=== PATIENT | male | born 1990 | race Caucasian/White ===

== ENCOUNTER 2018-12-03 22:25 | Inpatient (IN) | payer SELFPAY ==
[~2018-12-03] VITALS: Ht 175.3 cm; Wt 112.6 kg
--- NOTE | 2018-12-03 22:29 | NUR ---
PT TAKEN TO BED 6.
[2018-12-03 22:35] VITALS: BP 108/87
--- NOTE | 2018-12-03 22:36 | NUR ---
PT BIB SELF C/O HIGH BLOOD SUGAR. PT STATES HE TOOK BLOOD SUGAR AT HOME WAS 310, C/O CHEST PAIN X TODAY, 03/31 NOT RADIATING, PRESSURE PAIN. PT STATES HE SMOKED HEROIN LAST NIGHT AND SMOKE WEED EVERY DAY, RELEASED OUT OF [facility] ON 11/30/18. +RESTLESS, +ANXIOUS, +NAUSEA, SPEECH CLEAR. PT IS AAOX4. SKIN CLAMMY, DRY AND INTACT. PT IN GOWN, IN BED; BED IN LOWER LOCKED POSITION. ER MD AWARE OF PT STATUS. WILL CONTINUE TO MONITOR. PMH: AV
[2018-12-03] MEDS ORDERED: NACL 0.9% 1,000 ML IV ONE (22:40)
[2018-12-03 23:06] LABS: BARBITURATE, URINE NEG. ng/ml (NEG <=200); BENZODIAZEPINE, URINE NEG. ng/mL (NEG <=200); CANNABINOID, URINE POS. ng/mL (NEG <=50); COCAINE, URINE NEG. ng/mL (NEG <=300); OPIATE, URINE POS. ng/mL (NEG <=2000); PHENCYCLIDINE SCREEN,URINE NEG. ng/mL (NEG <=25)
[2018-12-03 23:08] LABS: ANION GAP 32.1 (8-16); CARBON DIOXIDE 11.7 mmol/L (21-32); CREATININE 1.6 mg/dL (0.7-1.3); POTASSIUM 3.8 mmol/L (3.5-5.1)
[2018-12-03] MEDS ORDERED: LORazepam 2 MG/ML VIAL IVP ONE (23:30)
[2018-12-03] MEDS ORDERED: NACL 0.9% 2,000 ML IV ONE (23:30)
--- NOTE | 2018-12-03 23:30 | NUR ---
4 IV ATTEMPTS UNSUCCESSFULL, EJ ATTEMPT TO LEFT NECK ARTERY W/ DR. BECKER AT BEDSIDE. FLUSHED WELL, UNABLE TO ADVANCE. PT IS UNABLE TO LAY STILL.
[2018-12-03 23:35] LABS: BASOPHILS % (AUTO) 0.2 % (0.0-2.0); EOSINOPHILS # (AUTO) 0.1 K/uL (0-0.4); EOSINOPHILS % (AUTO) 0.4 % (0.0-4.0); HEMATOCRIT 42.9 % (36-52); HEMOGLOBIN 14.7 g/dL (12.0-18.0); LYMPHOCYTES # (AUTO) 3.2 K/uL (2.0-11.5); LYMPHOCYTES % (AUTO) 17.5 % (20.5-51.1); MEAN CORPUSCULAR HEMOGLOBIN 29 pg (27-31); MEAN CORPUSCULAR HGB CONC 34 g/dL (33-37); MEAN CORPUSCULAR VOLUME 84.8 fL (80-94); MONOCYTES # (AUTO) 1.7 K/uL (0.8-1.0); MONOCYTES % (AUTO) 9.4 % (1.7-9.3); NEUTROPHILS # (AUTO) 13.3 K/uL (1.8-7.7); NEUTROPHILS % (AUTO) 72.5 % (42.2-75.2); PLATELET COUNT (AUTO) 240 K/uL (140-450); RED BLOOD CELL COUNT(AUTO) 5.06 MIL/uL (4.20-6.10); RED CELL DISTRIBUTION WIDTH 13.1 % (11.6-13.7); WHITE BLOOD COUNT (AUTO) 18.3 K/uL (4.8-10.8)
[2018-12-03] MEDS ORDERED: KCL 20 MEQ/WATER INJ PREMIX 100 ML IV ONE (23:55)
[2018-12-03] MEDS ORDERED: ZOLPIDEM 5 MG TAB PO PRN (23:55)
[2018-12-03] MEDS ORDERED: HYDROcodone/APAP 7.5/325 MG 1 TAB PO PRN (23:55)
[2018-12-03] MEDS ORDERED: DEXT 5% / NACL 0.45% 1,000 ML IV SCH (23:56)
[2018-12-04] VITALS (17 sets, daily range): BP systolic 119–153; BP diastolic 49–89
[2018-12-04] MEDS ORDERED: POTASSIUM CHLORIDE 40 MEQ in NACL 0.9% 1,000 ML IV ONE ×2
[2018-12-04] MEDS ORDERED: DEXTROSE 50% 50 ML SYR IVP PRN
--- NOTE | 2018-12-04 00:10 | NUR ---
LEFT EJ NOT FUNCTIONAL AT THIS TIME. DR. PHILLIPS AT BEDSIDE, AWARE OF PT WAS NOT ABLE TO GET A FUNCTION IV, STATES PT WILL GET A CENTRAL LINE. ER MEDS ON HOLD AT THIS TIME, ER MD AWARE. 24G TO RIGHT THUMB, +RESISTANCE AT THIS TIME.
[2018-12-04] MEDS ORDERED: HUM SUBQ (00:27)
[2018-12-04] MEDS ORDERED: INSU100S22 SC (00:27)
--- NOTE | 2018-12-04 00:35 | NUR ---
PT ARRIVED VIA ED RN, HOLLIS. PT IS AWAKE/ALERT. LEFT EJ AND RIGHT THUMB [address] INFUSING BOLUS NS A AT THIS TIME. PT IS ABLE TO AMBULATE AND REPOSITION HIMSELF IN BED. ST ON CARDIAC MONTIOR, ON ROOM AIR. BOWEL SOUND ACTIVE.DX DKA, NKA, FULL CODE.TEMP 99.2 RR=27, SATING 99%, AND BP 94/76. NO GOMES IN PLACE. PT IS STATING HE IS ANXIOUS AND CONTUOUSLY RESTLESS, MOVING ARMS AND LEGS AT BEDSIDE. HOB ABOVE 30 DEG, STANDARD PRECAUTIONS, Addendum: 12/04/18 at 0746 by Uzma Peterson RN PT HAS SLIPPERS, PANTS, ACCUCHECK KIT FROM HOME, CELL PHONE SALVAGE DETERMINER AND CELLPHONE IN BAG AT BEDSIDE.
--- NOTE | 2018-12-04 00:35 | NUR ---
Admited to ICU-2 via gurney by ALISTAIR Randolph and Alexandr, EMT. VSS at this time. AAOx4. Belongings list completed. Report to ALISTAIR Dejesus.
[2018-12-04 00:38] LABS: PROTHROMBIN TIME 10.3 secs (10.8-13.4)
--- NOTE | 2018-12-04 00:39 | NUR ---
CALL TO ICU SPOKE W/ CHARGE NURSE, DR. PHILLIPS WILL BE PLACING CENTRAL LINE ON PT ONCE IN ICU.
[2018-12-04] MEDS ORDERED: LORazepam 2 MG/ML VIAL IVP SCH ×3 (00:45→06:30)
[2018-12-04] MEDS ORDERED: INSULIN REGULAR, HUMAN 100 UNIT/ML VIAL SUBQ SCH (00:45)
[2018-12-04] MEDS ORDERED: INSULIN REGULAR, HUMAN 100 UNIT/ML VIAL IV SCH (00:45)
[2018-12-04] MEDS: BLOOD GLUCOSE MONITORING 1 DEV DEV FS SCH ×26 (00:46→23:16)
[2018-12-04 00:51] LABS: FREE T4 (FREE THYROXINE) 1.53 ng/dL (0.76-1.46); MAGNESIUM 1.9 mg/dL (1.8-2.4); PHOSPHORUS 5.2 mg/dL (2.5-4.9); THYROID STIMULATING HORMONE 0.94 uIU/mL (0.34-3.74)
--- NOTE | 2018-12-04 01:00 | NUR ---
DR. PHILLIPS AT BEDSIDE, PT EDUCATED ON PROCEDURE AND CONSENT FROM SIGNED BY PATIENT.
[2018-12-04] MEDS: ONDANSETRON 4 MG/2 ML VIAL IVP PRN ×2 (01:14→08:30)
[2018-12-04] MEDS ORDERED: HYDROmorphone PFS 2 MG/ML SYR ONE (01:21)
--- NOTE | 2018-12-04 02:30 | NUR ---
DR. BECKER FROM ED ARRIVED TO PLACE 18 GAUGE PIV INTO LEFT AC. INFUSING NS AT BOLUS AT THIS TIME.
[2018-12-04] MEDS ORDERED: LORazepam 2 MG/ML VIAL ONE (02:43)
[2018-12-04] MEDS ORDERED: HYDROmorphone 1 MG/ML AMP IVP SCH (02:45)
--- NOTE | 2018-12-04 03:25 | NUR ---
CENTRAL LINE IN PLACE BY DR. PHILLIPS AND ASSIST FROM ULTRASOUND. DYLAN FROM RADIOLOGY AT BEDSIDE TO OBTAIN CHEST XRAY FOR CENTRAL LINE PLACEMENT.
[2018-12-04] MEDS: INSULIN REGULAR, HUMAN 100 UNIT in NACL 0.9% 100 ML IV SCH ×6 (03:30→23:18)
[2018-12-04] MEDS ORDERED: ELA25 PO (04:26)
[2018-12-04 04:29] LABS: ANION GAP 32.5 (8-16); CREATININE 1.5 mg/dL (0.7-1.3); POTASSIUM 3.5 mmol/L (3.5-5.1)
[2018-12-04 04:32] LABS: MAGNESIUM 1.8 mg/dL (1.8-2.4); PHOSPHORUS 4.8 mg/dL (2.5-4.9)
[2018-12-04 04:33] LABS: CHOL/HDL RATIO 4.5 (1-4.5)
[2018-12-04] MEDS ORDERED: VANCOMYCIN PER PHARMACY MC PRN (04:35)
[2018-12-04 04:44] LABS: APPEARANCE,URINE CLEAR (CLEAR); BILIRUBIN,URINE 1+ (NEGATIVE); BLOOD, URINE TRACE-I (NEGATIVE); COLOR,URINE YELLOW (YELLOW); LEUKOCYTE ESTERASE ,URINE NEGATIVE (NEGATIVE); NITRITE, URINE NEGATIVE (NEGATIVE); PH,URINE 5.5 (5.0-9.0); UGLUCOSE 2+ (NEGATIVE)
[2018-12-04 05:07] LABS: RBC,URINE 0-5 /HPF (0-5); WBC,URINE 0-5 /HPF (0-5)
[2018-12-04] MEDS ORDERED: VANCOMYCIN 1,500 MG in NACL 0.9% 500 ML IV SCH (05:10)
[2018-12-04] MEDS ORDERED: SODIUM CHLORIDE 0.9% IV ONE (05:56)
[2018-12-04] MEDS ORDERED: POTASSIUM CHLORIDE IV ONE (05:56)
[2018-12-04] MEDS ORDERED: VANCOMYCIN 1,000 MG VIAL ONE (05:59)
--- NOTE | 2018-12-04 06:31 | NUR ---
DR. HANDY AT BEDSIDE, UPDATED ON PT CONDITION. CURRENT MT=384.
[2018-12-04] MEDS ORDERED: NACL 0.9% 1,000 ML IV ONE (06:50)
--- NOTE | 2018-12-04 07:20 | NUR ---
RECEIVED BEDSIDE REPORT FROM SCHOOL COUNSELOR RN, SHREYAS, FOR CONTINUITY OF CARE. PATIENT IS AAOX2, LETHARGIC, ABLE TO FOLLOW SIMPLE COMMANDS. PATIENT SKIN IS WARM AND DRY, INTACT. HE HAS CENTRAL LINE TO RIJ, ASYMPTOMATIC, PATENT. ST ON MONITOR, O2 SAT IS 94, BREATHING EVEN AND UNLABORED, DENIES ANY PAIN. HOB IS SEMI FOWLERS, NO SIGNS OF DISTRESS AT THIS TIME. WILL CONTINUE TO MONITOR
--- NOTE | 2018-12-04 07:30 | NUR ---
REPORT GIVEN TO MORNING SHIFT RNXIN.
--- NOTE | 2018-12-04 07:57 | NUR ---
ENDORSED TO ALISTAIR LAUREN, THAT PT AMITRYPTALINE MED WAS TURNED INTO PHARMACY.
[2018-12-04] MEDS ORDERED: CALCIUM ACETATE 667 MG TAB PO SCH ×2 (08:00)
--- NOTE | 2018-12-04 08:04 | NUR ---
DR. MOLINA AND RESIDENTS AT BEDSIDE
[2018-12-04] MEDS ORDERED: diphenhydrAMINE 50 MG/ML VIAL IVP SCH (08:15)
[2018-12-04] MEDS ORDERED: MORPHINE SULFATE 4 MG/ML SYR IVP SCH (08:15)
[2018-12-04] MEDS: POTASSIUM CHLORIDE 40 MEQ in NACL 0.9% 1,000 ML IV SCH ×4 (08:29→20:30)
[2018-12-04 08:30] LABS: ANION GAP 8.2 (8-16); CARBON DIOXIDE 33.8 mmol/L (21-32); CREATININE 1.1 mg/dL (0.7-1.3)
--- NOTE | 2018-12-04 08:36 | NUR ---
PATIENT HAS BEEN SCREENED AND CATEGORIZED HIGH NUTRITION RISK. PATIENT WILL BE SEEN WITHIN 1-2 DAYS OF ADMISSION. 12/04/18-12/05/[address]
--- NOTE | 2018-12-04 09:08 | NUR ---
INSERTED GOMES CATHETER, GOOD URINE OUTPUT NOTED, PATIENT TOLERATED WELL.
[2018-12-04] MEDS ORDERED: DEXMEDETOMIDINE HCL 200 MCG in NACL 0.9% 48 ML IV PRN ×2 (09:10→11:55)
--- NOTE | 2018-12-04 09:10 | NUR ---
reported vbg to dr saul
--- NOTE | 2018-12-04 09:13 | NUR ---
DR. FISHMAN IN TO SEE PATIENT, UPDATED ON PATIENT'S CONDITION.
[2018-12-04 09:32] LABS: MAGNESIUM 2.6 mg/dL (1.8-2.4)
[2018-12-04 09:42] LABS: BASOPHILS % (AUTO) 0.3 % (0.0-2.0); EOSINOPHILS # (AUTO) 0.6 K/uL (0-0.4); EOSINOPHILS % (AUTO) 5.4 % (0.0-4.0); HEMATOCRIT 52.4 % (36-52); HEMOGLOBIN 16.7 g/dL (12.0-18.0); LYMPHOCYTES # (AUTO) 1.1 K/uL (2.0-11.5); LYMPHOCYTES % (AUTO) 10.3 % (20.5-51.1); MEAN CORPUSCULAR HEMOGLOBIN 28 pg (27-31); MEAN CORPUSCULAR HGB CONC 32 g/dL (33-37); MEAN CORPUSCULAR VOLUME 86.9 fL (80-94); MONOCYTES # (AUTO) 1.3 K/uL (0.8-1.0); MONOCYTES % (AUTO) 11.8 % (1.7-9.3); NEUTROPHILS # (AUTO) 7.7 K/uL (1.8-7.7); NEUTROPHILS % (AUTO) 72.2 % (42.2-75.2); PLATELET COUNT (AUTO) 104 K/uL (140-450); RED BLOOD CELL COUNT(AUTO) 6.03 MIL/uL (4.20-6.10); RED CELL DISTRIBUTION WIDTH 18.4 % (11.6-13.7); WHITE BLOOD COUNT (AUTO) 10.7 K/uL (4.8-10.8)
[2018-12-04] MEDS: DOCUSATE SODIUM 100 MG GELCAP PO SCH ×2 (09:48→20:36)
[2018-12-04] MEDS: PANTOPRAZOLE 40 MG INJ VIAL IVP SCH (09:48)
[2018-12-04] MEDS: cefTRIAXone 1,000 MG in NACL 0.9% 50 ML IV SCH (09:49)
[2018-12-04 09:59] LABS: PHOSPHORUS 3.2 mg/dL (2.5-4.9)
--- NOTE | 2018-12-04 10:07 | NUR ---
STARTED PATIENT ON SOFT WRIST RESTRAINTS, DUE TO PATIENT PULLING ON CENTRAL LINE AND TAKING OFF LEADS. DR. ROZINA PAYNE.
--- NOTE | 2018-12-04 11:49 | NUR ---
POWER PLANT ENGINEER IS HERE TO ECHOCARDIOGRAM, HOWEVER PATIENT IS VERY RESTLESS. DR. HANDY IS AWARE, STATES IF ECHO CANNOT BE DONE DUE TO PATIENT'S RESTLESSNESS, THEN IT CAN BE DONE TOMORROW.
--- NOTE | 2018-12-04 12:41 | NUR ---
VBG REPORTED TO DR BETANCOURT
[2018-12-04] MEDS: DEXMEDETOMIDINE HCL 200 MCG in NACL 0.9% 48 ML IV PRN (13:16)
[2018-12-04] MEDS: VANCOMYCIN 1GM/DEXT 5% PREMIX 200 ML IV SCH ×2 (13:28→22:33)
--- NOTE | 2018-12-04 13:45 | NUR ---
PATIENT IS AT RASS -1, WILL CONTINUE TO MONITOR PATIENT.
[2018-12-04] MEDS ORDERED: SODIUM PHOS / POTASSIUM PHOS 1 PKT PDR PO SCH (14:00)
--- NOTE | 2018-12-04 14:10 | NUR ---
DR. BLEVINS AT BEDSIDE, UPDATED ON PATIENT'S CONDITION
[2018-12-04 14:24] LABS: ANION GAP 29.1 (8-16); CARBON DIOXIDE 10.6 mmol/L (21-32); CREATININE 1.2 mg/dL (0.7-1.3); POTASSIUM 3.7 mmol/L (3.5-5.1)
[2018-12-04 14:47] LABS: MAGNESIUM 1.7 mg/dL (1.8-2.4); PHOSPHORUS 1.9 mg/dL (2.5-4.9)
[2018-12-04] MEDS ORDERED: MAG SULF 2000 MG/WATER PREMIX 100 ML IV SCH (16:00)
--- NOTE | 2018-12-04 16:03 | NUR ---
REMOVED SOFT WRIST RESTRAINTS SINCE PATIENT IS MORE CALM, NOT PULLING ON TUBING OR RESTLESS.
[2018-12-04] MEDS ORDERED: VERAPAMIL 5 MG/2 ML VIAL IVP SCH (16:30)
[2018-12-04] MEDS: ACETAMINOPHEN 325 MG TAB PO PRN (16:43)
--- NOTE | 2018-12-04 17:49 | NUR ---
DR. HARMON IN TO SEE AND EXAMINE PATIENT, UPDATED ON PATIENT'S CONDITION
[2018-12-04 17:56] LABS: ANION GAP 17.7 (8-16); CARBON DIOXIDE 16.9 mmol/L (21-32); CREATININE 1.2 mg/dL (0.7-1.3); POTASSIUM 3.6 mmol/L (3.5-5.1)
[2018-12-04 18:00] LABS: MAGNESIUM 2.3 mg/dL (1.8-2.4); PHOSPHORUS 1.5 mg/dL (2.5-4.9)
[2018-12-04] MEDS ORDERED: POTASSIUM PHOSPHATE 15 MM in NACL 0.9% 250 ML IV SCH (19:00)
--- NOTE | 2018-12-04 19:15 | NUR ---
RECEIVED BEDSIDE REPORT FROM MORNING RNXIN. AFEBRILE TEMP 98.2, 139/63. SATING 98%, RR=27 , HR =108. ST ON CORPORATE LEGAL INTERN. ON ROOM AIR. LUNG SOUND CLEAR. BOWEL SOUND ACTIVE X4. RIJ CENTRAL LINE IN PLACE, INFUSING D51/2NS AT 200CC/HR, PRECEDEX AT 2.8ML/HR, INSULIN DRIP AT 5.5UNIT/HR. GOMES IN PLACE URINE IS DARK IVAN/ORANGE IN COLOR. PT IS EASY TO AROUSE, MOANS AND AT TIMES INCOHERENT SPEECH, OPENS EYES SPONTANEOUSLY. STANDARD PRECAUTIONS, FALL RISK PRECUATIONS MAINTAINED.
--- NOTE | 2018-12-04 19:20 | NUR ---
ENDORSED CONTINUITY OF CARE TO SOLAR SALES ESTIMATOR RNSHREYAS, NO SIGNS OF DISTRESS NOTED.
--- NOTE | 2018-12-04 20:30 | NUR ---
CLARIFIED WITH DR HARMON REGARDING POTASSIUM CHLORIDE 40MEQ ORDER; SAID NOT TO GIVE GIVE IT; TO GIVE THE POTASSIUM PHOSPHATE .SHREYAS SAINZ, AWARE
[2018-12-04] MEDS: AMITRIPTYLINE 75 MG PO SCH (20:36)
[2018-12-04 20:46] LABS: CARBON DIOXIDE 20.3 mmol/L (21-32); CREATININE 1.2 mg/dL (0.7-1.3); POTASSIUM 3.3 mmol/L (3.5-5.1)
[2018-12-04 20:50] LABS: MAGNESIUM 2.3 mg/dL (1.8-2.4); PHOSPHORUS 1.6 mg/dL (2.5-4.9)
[2018-12-04] MEDS ORDERED: AMITRIPTYLINE 25 MG TAB PO SCH (21:00)
--- NOTE | 2018-12-04 21:05 | NUR ---
PHONE CALL TO DR HARMON; MADE AWARE BS 117; 116 EARLIER. SAID TO DECREASE INSULIN DRIP TO 2.5 UNITS AT THIS TIME; MD AWARE ANION GAP 16.0
[2018-12-05] VITALS (50 sets, daily range): BP systolic 110–170; BP diastolic 60–93
[2018-12-05] MEDS: BLOOD GLUCOSE MONITORING 1 DEV DEV FS SCH ×25 (00:16→22:56)
--- NOTE | 2018-12-05 00:21 | NUR ---
PT HR 101-105, RR=27-33, TEMP 98.7. PT AROUSES TO VOICE/TOUCH. REMAINS ON SEDATION 2.8ML/HR PRECEDEX AND INSULIN DRIP AT 2.5UNITS/HR AND D51/2NS 200CC/HR. BG CHECK WAS 137.
[2018-12-05 00:26] LABS: ANION GAP 17.1 (8-16); CARBON DIOXIDE 20.3 mmol/L (21-32); CREATININE 1.1 mg/dL (0.7-1.3); POTASSIUM 3.4 mmol/L (3.5-5.1)
[2018-12-05 00:30] LABS: PHOSPHORUS 2.1 mg/dL (2.5-4.9)
[2018-12-05] MEDS: POTASSIUM CHLORIDE 40 MEQ in NACL 0.9% 1,000 ML IV SCH ×2 (00:34→04:39)
--- NOTE | 2018-12-05 00:38 | NUR ---
SPOKE WITH DR. HARMON, UPDATED ON RECENT BG AND LABS. NEW ORDER FOR INSULIN AT 3 UNITS/HR AND INCREASE FLUIDS TO 250ML/HR. WILL CARRY OUT.
--- NOTE | 2018-12-05 00:47 | NUR ---
RT ARI AT BEDSIDE TO BLOOD SAMPLE. DRAWN FROM CENTRAL LINE
--- NOTE | 2018-12-05 04:23 | NUR ---
PT SLEEPING, BUT EASY TO AROUSE. REQUESTING FOOD AT THIS TIME, EXPLAINED TO PT THAT HE CANNOT EAT RIGHT NOW AND DISCUSSED DX DKA. PT IS CALM/COOPERATIVE.
[2018-12-05] MEDS: DEXMEDETOMIDINE HCL 200 MCG in NACL 0.9% 48 ML IV PRN (04:32)
[2018-12-05] MEDS: VANCOMYCIN 1GM/DEXT 5% PREMIX 200 ML IV SCH (06:25)
--- NOTE | 2018-12-05 06:33 | NUR ---
DR HANDY AT BEDSIDE TO SEE PATIENT. PT IS AWAKE AT THIS TIME.
[2018-12-05 07:02] LABS: BASOPHILS % (AUTO) 0.3 % (0.0-2.0); EOSINOPHILS # (AUTO) 0.3 K/uL (0-0.4); HEMATOCRIT 37.1 % (36-52); HEMOGLOBIN 12.9 g/dL (12.0-18.0); LYMPHOCYTES % (AUTO) 28.4 % (20.5-51.1); MEAN CORPUSCULAR HEMOGLOBIN 30 pg (27-31); MEAN CORPUSCULAR HGB CONC 35 g/dL (33-37); MEAN CORPUSCULAR VOLUME 84.8 fL (80-94); MONOCYTES % (AUTO) 9.8 % (1.7-9.3); NEUTROPHILS # (AUTO) 6.2 K/uL (1.8-7.7); NEUTROPHILS % (AUTO) 58.5 % (42.2-75.2); PLATELET COUNT (AUTO) 182 K/uL (140-450); RED BLOOD CELL COUNT(AUTO) 4.37 MIL/uL (4.20-6.10); RED CELL DISTRIBUTION WIDTH 13.3 % (11.6-13.7); WHITE BLOOD COUNT (AUTO) 10.6 K/uL (4.8-10.8)
[2018-12-05 07:16] LABS: ANION GAP 15.4 (8-16); CARBON DIOXIDE 20.8 mmol/L (21-32); POTASSIUM 3.2 mmol/L (3.5-5.1)
--- NOTE | 2018-12-05 07:23 | NUR ---
BEDSIDE REPORT GIVEN TO MORNING SHIFT RNNORI.
--- NOTE | 2018-12-05 07:23 | NUR ---
RECEIVED BEDSIDE REPORT FROM MARY JANE SAINZ. PATIENT IN STABLE CONDITION. WILL CONTINUE TO MONITOR. Addendum: 12/05/18 at 1141 by Mcihelle Pierre RN PATIENT IS SEDATED WITH PRECEDEX DRIP. ON ROOM AIR. AWAKENS TO NAME. SKIN WARM TO TOUCH WNL, TOENAILS WNL, NO EDEMA, WITH HAIR GROWTH AND +2 BILATERAL PEDAL PULSES. RIGHT IJ TRIPLE LUMEN CENTRAL LINE PATENT AND INTACT. LEFT EJ HEPLOCK. FC IN PLACE TO YELLOW URINE IN MODERATE AMOUNT. BILATERAL BREATH SOUNDS CLEAR. ABLE TO FOLLOW SIMPLE COMMANDS. SAFETY MEASURES IN PLACE. WILL CONTINUE TO MONITOR
[2018-12-05 07:34] LABS: PHOSPHORUS 1.2 mg/dL (2.5-4.9)
[2018-12-05] MEDS: cefTRIAXone 1,000 MG in NACL 0.9% 50 ML IV SCH (08:21)
[2018-12-05] MEDS: PANTOPRAZOLE 40 MG INJ VIAL IVP SCH (08:22)
--- NOTE | 2018-12-05 08:27 | NUR ---
VBG RESULTS GIVEN TO DR. HANDY.
--- NOTE | 2018-12-05 08:35 | NUR ---
DR MOLINA AND GROUP ROUNDING. UPDATED OF PATIENT'S CONDITION. WILL FOLLOW UP WITH ORDERS
--- NOTE | 2018-12-05 08:45 | NUR ---
DR HANDY MADE AWARE OF PATIENT'S K 3.2 LEVEL. WILL FOLLOW UP WITH ORDERS
[2018-12-05] MEDS: DOCUSATE SODIUM 100 MG GELCAP PO SCH ×2 (09:00→21:00)
[2018-12-05 09:08] LABS: MAGNESIUM 2.7 mg/dL (1.8-2.4); PHOSPHORUS 2.9 mg/dL (2.5-4.9)
[2018-12-05 09:10] LABS: ANION GAP 8.9 (8-16); CARBON DIOXIDE 31.7 mmol/L (21-32); CREATININE 1.2 mg/dL (0.7-1.3); POTASSIUM 3.6 mmol/L (3.5-5.1)
--- NOTE | 2018-12-05 09:30 | NUR ---
PATIENT REFUSED PO MEDS AT THIS TIME.
[2018-12-05] MEDS: KCL 20 MEQ/WATER INJ PREMIX 200 ML IV SCH ×2 (10:47→13:53)
--- NOTE | 2018-12-05 14:08 | NUR ---
12/05/18 RD INITIAL ASSESSMENT COMPLETED PLEASE REFER TO NUTRITION ASSESSMENT UNDER CARE ACTIVITY FOR ESTIMATED NUTRITIONAL NEEDS. 1. CONTINUE ICE CHIPS MEDICALLY NECESSARY 2. WHEN PATIENT IS MEDICALLY STABLE CONSIDER ADVANCING DIET TO CCHO 60 GM TOLERATED 3. PATIENT DECLINED NUTRITION EDUCATION FOR DIABETES 4. RD TO FOLLOW-UP 2-3 DAYS, HIGH RISK JUDI BLANCO RD
[2018-12-05] MEDS: VANCOMYCIN 1,500 MG in DEXTROSE 5% 500 ML IV SCH ×2 (14:09→22:45)
[2018-12-05 15:48] LABS: CARBON DIOXIDE 21.1 mmol/L (21-32); CREATININE 0.9 mg/dL (0.7-1.3); POTASSIUM 3.1 mmol/L (3.5-5.1)
[2018-12-05 15:49] LABS: MAGNESIUM 2.6 mg/dL (1.8-2.4)
[2018-12-05] MEDS: ACETAMINOPHEN 325 MG TAB PO PRN (16:32)
[2018-12-05] MEDS: POTASSIUM CHL 20 MEQ/NACL 0.9% 1,000 ML IV SCH ×2 (16:34→23:48)
--- NOTE | 2018-12-05 17:46 | NUR ---
RECEIVED A CALL FROM LAB, PATIENT IS POSITIVE FOR MRSA. DR MCINTOSH MADE AWARE. WILL FOLLOW UP WITH ORDERS.
[2018-12-05] MEDS: CHLORHEXADINE GLUC 2% CLOTH TP SCH (18:30)
[2018-12-05] MEDS ORDERED: POTASSIUM CHLORIDE 40 MEQ, LIDOCAINE MPF 1% - 5 mL VIAL 25 MG in NACL 0.9% 250 ML IV SCH (19:00)
[2018-12-05] MEDS: MUPIROCIN CA NASAL 2% 1GM TUBE NS SCH (19:07)
--- NOTE | 2018-12-05 19:20 | NUR ---
REPORT GIVEN TO NOC RN FOR CONTINUITY OF CARE. PATIENT IN STABLE CONDITION.
--- NOTE | 2018-12-05 19:20 | NUR ---
RECEIVED BEDSIDE REPORT FROM MORNING SHIFT RNNORI. BP 153/84, RR=21, PX=479, SATING 99%, AFEBRILE TEMP 98.9. ON ROOM AIR, BILATERAL LUNG SOUNDS. BOWEL SOUND ACTIVE. PT COMPLAINS THAT HE IS HUNGRY AND WOULD LIKE TO EAT, PT EDUCATED AND AWARE OF NPO AND DKA STATUS. GOMES IN PLACE URINE IS YELLOW TO LIGHT IVAN/CLOUDY. NO BM AT THIS TIME. RIGHT IJ INFSING 20MEQ KCL/NS AT 150CC/HR AND 3 UNITS /HR INUSLIN DRIP TO RIGHT IJ.PT IS AWAKE, ABLE TO RESPOND TO COMMANDS. STATED THAT HE IS HUNGRY AND WOULD LIKE TO EAT. PT EDUCATED AND AWARE OF NPO STATUS DUE TO DKA. SKIN IS INTACT. FALL RISK AND CONTACT PRECAUTIONS MAINTAINED.
--- NOTE | 2018-12-05 19:32 | NUR ---
DR. BLEVINS AT [facility] TO SEE PATIENT, UPDATED ON CURRENT CONDITION. NO NEW ORDERS AT THIS TIME.
[2018-12-05 20:32] LABS: ANION GAP 13.8 (8-16); CREATININE 0.9 mg/dL (0.7-1.3)
[2018-12-05 20:36] LABS: MAGNESIUM 1.7 mg/dL (1.8-2.4); PHOSPHORUS 1.1 mg/dL (2.5-4.9)
[2018-12-05 20:42] LABS: POTASSIUM 2.8 mmol/L (3.5-5.1)
[2018-12-05] MEDS: AMITRIPTYLINE 75 MG PO SCH (21:00)
--- NOTE | 2018-12-05 21:03 | NUR ---
ENDROSED TO DR. HARMON, OF POTASSIUM CRITICAL LAB VALUE 2.8, LAST BG READING OF 220 AND 244, INFUSING 40MEQ POTASSIUM, AND 20MEQ KCL/NS AT 150CC/HR. STATED TO FOLLOW PROTOCOL, INCREASED INSULIN TO 5.5UNIT/HR.
--- NOTE | 2018-12-05 22:17 | NUR ---
PT STARTING TO DESAT IN 79-84%, RESPIRATIONS 27-30. RECOMMENDED TO PATIENT TO WEAR OXYGEN AT THIS TIME. PT REFUSED TO WEAR OXYGEN STATING THAT HE DOES NOT WANT TO WEAR OXYGEN SINCE HE CANNOT EAT. ENCOURAGE PATIENT TO WEAR OXYGEN, RE-EDUCATED PATIENT THAT HE CANNOT EAT DUE TO HIS DKA STATUS AND THAT WE ARE CONSISTENTLY MONITORING BLOOD SUGARS.
--- NOTE | 2018-12-05 22:31 | NUR ---
PT REFUSING BLOOD SUGAR CHECK STATING "ITS NOT GOING TO MAKE A DIFFERENCE, SINCE I CANT EAT" AND THAT IT IS NOT NECESSARY TO CHECK IT EVERY HOUR. PT REFUSING ORAL COLACE AT THIS TIME. Addendum: 12/05/18 at 2240 by Uzma Peterson RN DR HARMON MADE AWARE.
[2018-12-06] VITALS: BP 144/82
[2018-12-06] MEDS: BLOOD GLUCOSE MONITORING 1 DEV DEV FS SCH ×10 (00:44→21:22)
[2018-12-06 00:48] LABS: CREATININE 0.9 mg/dL (0.7-1.3)
[2018-12-06 00:53] LABS: MAGNESIUM 1.6 mg/dL (1.8-2.4)
[2018-12-06 02:00] VITALS: BP 149/78
--- NOTE | 2018-12-06 02:04 | NUR ---
CALLED DR. HARMON UPDATED ON RECENT LAB RESULTS ANION GAP 12 AND 13.8 AND AG=481. PT REQUESTING TO EAT CEREAL/FOOD AT THIS TIME. EDUCATED PT ON DX OF DKA, PT AWARE DR. HARMON HAS BEEN CONTACTED.
[2018-12-06] MEDS: INSULIN REGULAR, HUMAN 100 UNIT in NACL 0.9% 100 ML IV SCH ×2 (02:45)
--- NOTE | 2018-12-06 02:46 | NUR ---
CALLED DR. HARMON, UPDATED ON PT CONDITION AND PT REQUESTS TO EAT. TO REVIEW LABS STATED NO CHANGE IN ORDERS AT THIS TIME. PT RECEIVING INSULIN DRIP AT 5.5 UNITS/HR, 20MEQ KCL/1 LITER NS INFUSING AT 150/HR. WILL UPDATE ORDER FOR MAG AND PHOS.
[2018-12-06] MEDS ORDERED: INSULIN LANTUS 100 UNITS/ML 10 ML VIAL SUBQ SCH ×4 (02:50→09:00)
[2018-12-06] MEDS ORDERED: INSULIN LISPRO SLIDING SCALE 100 UNITS/ML VIAL SUBQ PRN (02:50)
[2018-12-06] MEDS ORDERED: DEXTROSE 50% 50 ML SYR IVP PRN (02:50)
--- NOTE | 2018-12-06 03:01 | NUR ---
DR. HARMON UPDATED ORDERS, PT AWAKE AT BEDSIDE EATING SANDWICH AND MILK. 100ML OF INSULIN WASTED AFTER D/C ORDER AND WASTED 30ML PRECEDEX AT THIS TIME. CHARGE NURSE EFREN AT BEDSIDE TO WITNESS.
[2018-12-06] MEDS ORDERED: POTASSIUM PHOSPHATE 15 MM in NACL 0.9% 250 ML IV SCH ×2 (03:15→11:30)
[2018-12-06] MEDS ORDERED: MAG SULF 2000 MG/WATER PREMIX 50 ML IV SCH (03:15)
--- NOTE | 2018-12-06 03:30 | NUR ---
RECEIVED CALL FROM PHARMACY SUE([phone]) , STATED INSULIN DOSES SEEM TOO CLOSE (15 UNITS TO GIVE NOW, AND 0900 50 UNITS TO GIVE LATER) PHARMACY WANTED CONFIRMATION FROM DR. HARMON THAT THIS DOSAGES AND TIMES IS CORRECT. CALLED DR. HARMON UPDATED ON PHARMACY CONCER, DR. HARMON TO RE-EVALUATE AND UPDATE ORDER AT THIS TIME, STATED PT NORMALLY RECEIVES HIGHER DOSE (95 UNITS LANTUS INSULIN) WHILE AT HOME. TO F/U WITH ORDERS.
[2018-12-06 04:00] VITALS: BP 138/79
--- NOTE | 2018-12-06 05:06 | NUR ---
PT STATE NEED TO HAVE BOWEL MOVEMENT AND VOIDING EPISODE, REFUSED COMMODE AND BEDPAN, PT EDUCATED VIA CHARGE NURSE EFREN THAT HE HAS A GOMES AND THAT HE HAS BEEN URINATING INTO CATHETER BAG. PT WAS MILDLY AGITATED AND EXPRESSED HE IS FAMILIAR WITH HOW FOLEYS WORK HE HAS HAD ONE BEFORE, BUT STILL FEELS THAT HE IS UNABLE TO VOID IN BED. CHARGE NURSE EFREN PROVIDED STANDBY ASSIST AT BEDSIDE, PT WAS THEN TRANSFERRED TO BED 8 AT THIS TIME DUE TO CONTACT ISOLATION STATUS AND TOILET IN ROOM (0445), PT COMPLIED. UPON USING BATHROOM TOILET, PT EXPRESSED CATHETER IS COMING OUT. 10CC WAS REMOVED VIA BALLOON AND GOMES CATHETER WAS REMOVED. PT HAD ONE BOWEL MOVEMENT. PT IS LAYING IN BED, QUIET, DRINKING WATER AT THIS TIME. CURRENT BG CHECK IS 380. MAGNESIUM INFUSNIG AT 25ML/HR, AND POTASSIUM CHLORIDE AT 150CC/HR. PT DENIES PAIN AND CONSTIPATION AT THIS TIME(0505).
[2018-12-06] MEDS ORDERED: INSULIN REGULAR, HUMAN 100 UNIT/ML VIAL SUBQ SCH ×2 (05:30→06:00)
[2018-12-06] MEDS ORDERED: SODIUM PHOS / POTASSIUM PHOS 1 PKT PDR PO SCH (05:30)
--- NOTE | 2018-12-06 05:32 | NUR ---
DR. HARMON CALLED BACK SPOKE TO CHARGE NURSE EFREN STATED HE WOULD UPDATE ORDERS AT THIS TIME.
--- NOTE | 2018-12-06 05:55 | NUR ---
DR. HANDY AT BEDSIDE TO SEE PATIENT, PT IS AWAKE AT THIS TIME
[2018-12-06] MEDS ORDERED: SODIUM PHOS / POTASSIUM PHOS 1 PKT PDR ONE (06:05)
[2018-12-06] MEDS: VANCOMYCIN 1,500 MG in DEXTROSE 5% 500 ML IV SCH (06:08)
[2018-12-06] MEDS: POTASSIUM CHL 20 MEQ/NACL 0.9% 1,000 ML IV SCH (06:15)
--- NOTE | 2018-12-06 06:26 | NUR ---
PT REFUSES TO WEAR O2 SAT AND BP CUFF, AGREES TO CONTINUE TO WEAR CLAIMS ADJUSTER SUPERVISOR. 15 UNITS REGULAR INSULIN WAS GIVEN. TOTAL URINE OUTPUT WAS 1600 Q SHIFT, WITH 2 EPISODES VOIDING THAT WAS UNMEASURED. PT IS ALERT AND ABLE TO AMBULATE WITHOUT ASSISTANCE.
--- NOTE | 2018-12-06 07:30 | NUR ---
RECEIVED REPORT FROM HAUL TRUCK DRIVER RN. PT RESTING IN BED. A/O X4. MAKES NEEDS KNOWN. BREATHING NORMALLY. NO SOB OR ACUTE RESPIRATORY DISTRESS NOTED. AFEBRILE. LUNGS CLEAR. RIJ TRIPLE LUMEN. INTACT LINES. FLUSHED. NS WITH KCL RUNNING AT 150 ML/HR. LEFT EJ IN PLACE. PERIPHERAL LINE NOTED ON RIGHT HAND. PT REFUSED TO CHECKED OTHER PERIPHERAL LINES. DENIES ANY NAUSEA OR VOMITING. ABDOMEN SOFT, ROUND AND NON-TENDER. ACTIVE BOWEL SOUND. SKIN INTACT. REFUSED TO PERFORM HEAD TO TOE ASSESSMENT COMPLETELY. REFUSED TO CHECK SPO2 AND TO BE ON MONITOR. NO C/O PAIN AT THIS TIME. BED IN LOW POSITION LOCKED. WILL CONTINUE TO MONITOR.
[2018-12-06 08:00] VITALS: BP 132/68
--- NOTE | 2018-12-06 08:00 | NUR ---
EVALUATED BY DR. MOLINA AND RESIDENT GROUP.
[2018-12-06 08:07] LABS: ANION GAP 20.2 (8-16); CARBON DIOXIDE 19.2 mmol/L (21-32); CREATININE 0.9 mg/dL (0.7-1.3); POTASSIUM 3.4 mmol/L (3.5-5.1)
[2018-12-06] MEDS: cefTRIAXone 1,000 MG in NACL 0.9% 50 ML IV SCH (08:29)
[2018-12-06] MEDS: PANTOPRAZOLE 40 MG INJ VIAL IVP SCH (08:29)
[2018-12-06] MEDS: DOCUSATE SODIUM 100 MG GELCAP PO SCH (08:29)
[2018-12-06 08:31] LABS: PHOSPHORUS 1.4 mg/dL (2.5-4.9)
[2018-12-06] MEDS: INSULIN LISPRO SLIDING SCALE 100 UNITS/ML VIAL SUBQ PRN ×4 (08:32→21:23)
[2018-12-06 08:39] LABS: BASOPHILS % (AUTO) 0.2 % (0.0-2.0); EOSINOPHILS # (AUTO) 0.5 K/uL (0-0.4); HEMATOCRIT 38.5 % (36-52); HEMOGLOBIN 13.2 g/dL (12.0-18.0); LYMPHOCYTES # (AUTO) 5.3 K/uL (2.0-11.5); LYMPHOCYTES % (AUTO) 29.3 % (20.5-51.1); MEAN CORPUSCULAR HEMOGLOBIN 29 pg (27-31); MEAN CORPUSCULAR HGB CONC 34 g/dL (33-37); MEAN CORPUSCULAR VOLUME 85.2 fL (80-94); MONOCYTES # (AUTO) 1.8 K/uL (0.8-1.0); MONOCYTES % (AUTO) 9.6 % (1.7-9.3); NEUTROPHILS # (AUTO) 10.6 K/uL (1.8-7.7); NEUTROPHILS % (AUTO) 57.9 % (42.2-75.2); PLATELET COUNT (AUTO) 198 K/uL (140-450); RED BLOOD CELL COUNT(AUTO) 4.52 MIL/uL (4.20-6.10); WHITE BLOOD COUNT (AUTO) 18.2 K/uL (4.8-10.8)
--- NOTE | 2018-12-06 08:41 | NUR ---
ADMINISTERED MEDICINE. PT REFUSED TO BE ON MONITOR. REFUSED 0900 AM DOCUSATE SODIUM. SAID "I AM OKAY."
[2018-12-06] MEDS ORDERED: POTASSIUM CHLORIDE 10 MEQ TABER PO SCH (09:00)
--- NOTE | 2018-12-06 09:02 | NUR ---
DR. HANDY MADE AWARE ABOUT PT'S REFUSAL TO BE ON MONITOR. SPO2 CHECK.
[2018-12-06 09:17] LABS: ANION GAP 22.8 (8-16); CARBON DIOXIDE 17.1 mmol/L (21-32); POTASSIUM 3.9 mmol/L (3.5-5.1)
[2018-12-06] MEDS ORDERED: NACL 0.9% 1,000 ML IV SCH (10:10)
[2018-12-06 10:12] LABS: PHOSPHORUS 1.2 mg/dL (2.5-4.9)
--- NOTE | 2018-12-06 11:40 | NUR ---
ADMINISTERED MEDICINE PER ORDER. NO SOB OR ACUTE RESPIRATORY DISTRESS NOTED. DENIES ANY N/V/D. DENIES ANY PAIN AT THIS TIME. PT SAYS "I AM FINE." REFUSED TO CHECK V/S FROM BEDSIDE MONITOR. CHECKED VS MANUALLY.
[2018-12-06 12:00] VITALS: BP 138/87
[2018-12-06 13:49] LABS: ANION GAP 16.4 (8-16); CARBON DIOXIDE 22.1 mmol/L (21-32); CREATININE 0.9 mg/dL (0.7-1.3); POTASSIUM 3.5 mmol/L (3.5-5.1)
[2018-12-06 13:53] LABS: PHOSPHORUS 1.4 mg/dL (2.5-4.9)
--- NOTE | 2018-12-06 14:32 | NUR ---
RESTING IN BED COMFORTABLY. NO SOB OR ACUTE RESPIRATORY DISTRESS. DENIES NAUSEA, VOMITING. NO C/O PAIN AT THIS TIME. WILL CONTINUE TO MONITOR.
[2018-12-06] MEDS: NACL 0.9% 1,000 ML IV SCH ×2 (15:03→21:39)
--- NOTE | 2018-12-06 15:04 | NUR ---
PT REFUSED MONITORING VS. PT SAYS "I AM NOT GONNA DO VITALS UNTIL I GET DINNER." NO CHANGE IN LOC. WILL CONTINUE TO MONITOR.
[2018-12-06 16:00] VITALS: BP 145/93
[2018-12-06] MEDS: CHLORHEXADINE GLUC 2% CLOTH TP SCH (17:50)
[2018-12-06] MEDS: MUPIROCIN CA NASAL 2% 1GM TUBE NS SCH (17:51)
--- NOTE | 2018-12-06 17:56 | NUR ---
PT REFUSED BACTROBAN. PT IS AWARE OF RISK AND BENEFITS OF MEDICATION. DR. HANDY AWARE.
--- NOTE | 2018-12-06 19:21 | NUR ---
REPORT GIVEN TO PETAL CUTTER RN FOR CONTINUITY OF CARE.
--- NOTE | 2018-12-06 19:30 | NUR ---
RECEIVED BEDSIDE REPORT FROM MORNING NURSE. PATIENT AAO X 4, NOW PATIENT WANT TO SLEEP, REFUSED ASSESSMENT. ABLE TO USE TOILET AND URINAL. DENIES PAIN AT THIS TIME. CENTRAL LINE TO RIJ, PERIPHERAL LINE TO LEFT EJ. PATIENT REFUSED TO FLUSH AT THIS TIME. TRYING TO CONVINCE HIM ABOUT PLACING MONITOR BUT REFUSED. WILL CONTINUE TO MONITOR.
[2018-12-06] MEDS: AMITRIPTYLINE 75 MG PO SCH (21:00)
--- NOTE | 2018-12-06 21:30 | NUR ---
BS CHECKED 305 NOTED, ADMINISTERED HUMALOG 8 UNITS ORDERED. DENIES PAIN. WILL CONTINUE TO MONITOR.
--- NOTE | 2018-12-06 23:30 | NUR ---
PATIENT REQUEST SOMETHING TO EAT, PROVIDED SNACKS, PATIENT ATE 100% SNACKS. DENIES PAIN. WILL CONTINUE TO MONITOR.
--- NOTE | 2018-12-07 02:00 | NUR ---
PATIENT DENIES PAIN AT THIS TIME. NO ACUTE DISTRESS. WILL CONTINUE TO MONITOR.
--- NOTE | 2018-12-07 04:00 | NUR ---
PATIENT IN ASLEEP, AROUSABLE TO VOICE. DENIES PAIN. NO DISCOMFORT. WILL CONTINUE TO MONITOR.
[2018-12-07] MEDS: NACL 0.9% 1,000 ML IV SCH (04:33)
--- NOTE | 2018-12-07 05:00 | NUR ---
PATIENT REFUSED BLOOD DRAWN FOR LABS AT THIS TIME. HE STATED NOW HE IS SLEEPY BUT HE WILL ACCEPT AFTER 629.
[2018-12-07] MEDS: INSULIN LISPRO SLIDING SCALE 100 UNITS/ML VIAL SUBQ PRN (06:09)
[2018-12-07 06:48] LABS: ANION GAP 26.7 (8-16); CARBON DIOXIDE 14.5 mmol/L (21-32); CREATININE 0.8 mg/dL (0.7-1.3); POTASSIUM 4.2 mmol/L (3.5-5.1)
[2018-12-07] MEDS: BLOOD GLUCOSE MONITORING 1 DEV DEV FS SCH (06:51)
[2018-12-07 06:52] LABS: MAGNESIUM 1.7 mg/dL (1.8-2.4); PHOSPHORUS 1.9 mg/dL (2.5-4.9)
--- NOTE | 2018-12-07 07:05 | NUR ---
RECEIVED BEDSIDE REPORT FROM REPACKER RN, SASCHA, FOR CONTINUITY OF CARE. PATIENT IS AAOX4, ABLE TO MAKE NEEDS KNOWN AND FOLLOWS COMMANDS. PATIENT SKIN IS WARM, DRY, INTACT. HE HAS CENTRAL LINE TO RIJ, PERIPHERAL LINE TO LEJ, ASYMPTOMATIC AND PATENT. PATIENT IS ON ROOM AIR, BREATHING EVEN AND UNLABORED. PATIENT REFUSES TO BE ON PLEAT TAPER, EDUCATED ON NEED TO MONITOR VITAL SIGNS HOWEVER CONTINUES TO REFUSE, DENIES ANY PAIN AT THIS TIME. NO SIGNS OF DISTRESS NOTED. CALL LIGHT IS IN REACH, HOB IS SEMI FOURNIER, BED LOCKED. SAFETY PRECAUTIONS AND ALARMS ASSESSED AND ENFORCED. WILL CONTINUE TO MONITOR
--- NOTE | 2018-12-07 07:30 | NUR ---
PROVIDED PATIENT WITH BREAKFAST TRAY.
--- NOTE | 2018-12-07 08:02 | NUR ---
DR. MOLINA AND RESIDENT PHYSICIANS AT BEDSIDE, UPDATED ON PATIENT'S CONDITION. WILL FOLLOW UP ON ANY ORDERS.
--- NOTE | 2018-12-07 08:05 | NUR ---
PER DR. MOLINA, PATIENT IS OKAY TO BE DISCHARGED, AWARE THAT PATIENT'S LAST BLOOD GLUCOSE IS 363.
[2018-12-07] MEDS ORDERED: SODIUM PHOS / POTASSIUM PHOS 1 PKT PDR PO SCH (09:00)
[2018-12-07] MEDS ORDERED: MAGNESIUM OXIDE 400 MG TAB PO SCH (09:00)
--- NOTE | 2018-12-07 09:25 | NUR ---
ADMINISTERED SCHEDULED MEDS, PATIENT TOLERATED WELL. EDUCATED ON ELECTROLYTE REPLACEMENT, PATIENT VERBALIZES UNDERSTANDING.
[2018-12-07 09:29] LABS: BASOPHILS # (AUTO) 0.1 K/uL (0.00-0.22); BASOPHILS % (AUTO) 0.5 % (0.0-2.0); EOSINOPHILS # (AUTO) 0.5 K/uL (0-0.4); EOSINOPHILS % (AUTO) 4.2 % (0.0-4.0); HEMATOCRIT 39.4 % (36-52); HEMOGLOBIN 13.5 g/dL (12.0-18.0); LYMPHOCYTES % (AUTO) 36.9 % (20.5-51.1); MEAN CORPUSCULAR HEMOGLOBIN 30 pg (27-31); MEAN CORPUSCULAR HGB CONC 34 g/dL (33-37); MONOCYTES # (AUTO) 0.8 K/uL (0.8-1.0); NEUTROPHILS # (AUTO) 5.6 K/uL (1.8-7.7); NEUTROPHILS % (AUTO) 51.4 % (42.2-75.2); PLATELET COUNT (AUTO) 198 K/uL (140-450); RED BLOOD CELL COUNT(AUTO) 4.58 MIL/uL (4.20-6.10); RED CELL DISTRIBUTION WIDTH 13.2 % (11.6-13.7); WHITE BLOOD COUNT (AUTO) 10.9 K/uL (4.8-10.8)
--- NOTE | 2018-12-07 10:28 | NUR ---
REMOVED PATIENT'S CENTRAL LINE TO RIJ, AND PERIPHERAL IV SITE TO LEJ, PATIENT TOLERATED WELL.
--- NOTE | 2018-12-07 10:29 | NUR ---
DR. HANDY IN TO SPEAK WITH PATIENT, RECEIVED ORDER FOR DISCHARGE.
--- NOTE | 2018-12-07 10:37 | NUR ---
PATIENT EDUCATED ON MEDICATIONS, MRSA, AND ELECTROLYTE IMBALANCE. PATIENT VERBALIZES UNDERSTANDING.
--- NOTE | 2018-12-07 11:49 | NUR ---
WALKED PATIENT OUT TO [facility], PATIENT ABLE TO AMBULATE WITH STEADY GAIT, AAOX4. DISCUSSED AND EDUCATED REGARDING FOLLOW UP APPOINTMENT AND MRSA, BOTH VERBALIZED UNDERSTANDING. PATIENT DISCHARGED HOME WITH DISCHARGED PAPERWORK SIGNED. SIGNED DISCHARGE PAPERWORK COPY IN CHART.
== END 2018-12-07 11:49 | disposition home or self-care (01) | DRG 871 ==
LOC: MED 22:25 → MIC 23:56
PROVIDERS: ADMIT General Practice; ATTEND General Practice
PROC: 02HV33Z Insertion of Infusion Device into Superior Vena Cava, Percutaneous Approach (ICD-10-PCS; principal; 2018-12-04)
DX: A41.9 Sepsis, unspecified organism (principal); E11.10 Type 2 diabetes mellitus with ketoacidosis without coma; J96.21 Acute and chronic respiratory failure with hypoxia; N17.0 Acute kidney failure with tubular necrosis; E87.2 Acidosis; F19.239 Other psychoactive substance dependence with withdrawal, unspecified; E11.65 Type 2 diabetes mellitus with hyperglycemia; F41.9 Anxiety disorder, unspecified; F32.9 Major depressive disorder, single episode, unspecified; E11.40 Type 2 diabetes mellitus with diabetic neuropathy, unspecified; D72.829 Elevated white blood cell count, unspecified; D69.6 Thrombocytopenia, unspecified; E02 Subclinical iodine-deficiency hypothyroidism; E83.39 Other disorders of phosphorus metabolism; E66.01 Morbid (severe) obesity due to excess calories; Z68.36 Body mass index [BMI] 36.0-36.9, adult; Z91.19 Patient's noncompliance with other medical treatment and regimen
CPT/HCPCS: 36415; 36600; 71045; 80048; 80202; 80305; 81001; 82150; 82803; 82948; 83036; 83605; 83690; 83735; 83880; 84100; 84439; 84443; 84484; 85025; 85610; 85730; 87040; 87081; 93005; 96361; 96374; 99291; C9113; G0482; J0696; J1170; J1200; J1642; J1815; J2001; J2060; J2270; J2405; J3370; J3475; J3480; J3490; J7030; J7042; J7060; Q0092